=== PATIENT | male | born 1955 | race African-American/Black ===

== ENCOUNTER 2021-10-02 16:10 | Inpatient (IN) | payer MEDICARE, MEDICAID ==
[~2021-10-02] VITALS: Ht 180.3 cm; Wt 98.9 kg
[2021-10-02] MEDS ORDERED: SODIUM CHLORIDE 0.9% 250 ML IV ONE (16:45)
[2021-10-02 17:12] LABS: BASOPHILS % 0.3 % (0.0-2.0); EOSINOPHILS % 1.2 % (0.0-5.0); HEMOGLOBIN. 12.3 g/dL (14.0-18.0); LYMPHOCYTES % 14.3 % (20.0-50.0); MEAN CORPUSCULAR HEMOGLOBIN 27.9 pg (28.0-32.0); MEAN CORPUSCULAR VOLUME 88.5 fL (80.0-94.0); MEAN PLATELET VOLUME 8.2 fl (7.4-10.4); MONOCYTES % 8.6 % (2.0-8.0); NEUTROPHILS % 75.6 % (40.0-76.0); PLATELET 210 x1000/uL (130-400); RED CELL DISTRIBUTION WIDTH 14.9 % (11.6-14.6)
[2021-10-02 17:18] LABS: CHLORIDE 110 mEq/L (98-107)
[2021-10-02] MEDS ORDERED: POTASSIUM CHLORIDE 20MEQ TABLET SR PO ONE (17:30)
[2021-10-02] MEDS ORDERED: CLONIDINE 0.1MG TABLET PO PRN (21:30)
[2021-10-02] MEDS ORDERED: ONDANSETRON HCL 4MG/2ML INJ IV PRN (21:30)
[2021-10-02] MEDS ORDERED: MAGNESIUM/ALUMINUM HYDROXIDE/SIMETHICONE 30ML UDC PO PRN (21:30)
[2021-10-02] MEDS ORDERED: IPRATROPIUM/ALBUTEROL 0.5-3(2.5)MG/3ML NEB NEB PRN (21:30)
[2021-10-02] MEDS ORDERED: DOCUSATE SODIUM 100MG CAPSULE PO PRN (21:30)
[2021-10-02] MEDS ORDERED: ENOXAPARIN 40MG/0.4ML SYR SUBCUT SCH (21:30)
[2021-10-02] MEDS ORDERED: GUAIFENESIN 200MG/10ML SUGAR FREE UDC PO PRN (21:30)
[2021-10-02 23:47] LABS: CREATINE KINASE 186 IU/L (39-308)
[2021-10-02 23:48] LABS: CREATINE KINASE MB FRACTION 1.3 ng/mL (0.5-3.6)
[2021-10-03] MEDS: SODIUM CHLORIDE 0.9% 1,000 ML IV SCH ×3 (00:46→21:17)
[2021-10-03] MEDS: ENOXAPARIN 40MG/0.4ML SYR SUBCUT SCH ×2 (00:46→13:39)
[2021-10-03] MEDS ORDERED: POTASSIUM CHLORIDE 20MEQ TABLET SR PO NR (01:00)
[2021-10-03 03:02] LABS: CLARITY URINE CLEAR (CLEAR); COLOR URINE YELLOW (YELLOW); KETONES URINE TRACE (NEGATIVE); LEUKOCYTE ESTERASE URINE NEGATIVE (NEGATIVE); NITRITE URINE NEGATIVE (NEGATIVE); OCCULT BLOOD URINE NEGATIVE (NEGATIVE); PROTEIN URINE TRACE (NEGATIVE); SPECIFIC GRAVITY URINE 1.024 (1.005-1.030); UROBILINOGEN URINE 0.2 E.U./dL (0.2-1.0)
[2021-10-03 03:30] LABS: *AMPHETAMINES SCREEN URINE NEGATIVE (NEGATIVE); *BARBITURATES SCREEN URINE NEGATIVE (NEGATIVE)
[2021-10-03 03:31] LABS: *BENZODIAZEPINES SCREEN URINE NEGATIVE (NEGATIVE); *COCAINE SCREEN URINE NEGATIVE (NEGATIVE); CANNABINOID URINE SCREEN NEGATIVE (NEGATIVE); METHADONE URINE SCREEN NEGATIVE (NEGATIVE); OPIATES URINE SCREEN NEGATIVE (NEGATIVE); PHENCYCLIDINE URINE SCREEN NEGATIVE (NEGATIVE)
[2021-10-03 06:04] LABS: BASOPHILS % 0.2 % (0.0-2.0); EOSINOPHILS % 0.7 % (0.0-5.0); HEMATOCRIT. 35.6 % (42.0-52.0); HEMOGLOBIN. 11.5 g/dL (14.0-18.0); LYMPHOCYTES % 21.5 % (20.0-50.0); MEAN CORPUSCULAR HEMOGLOBIN 28.4 pg (28.0-32.0); MEAN CORPUSCULAR VOLUME 87.8 fL (80.0-94.0); MONOCYTES % 9.1 % (2.0-8.0); NEUTROPHILS % 68.5 % (40.0-76.0); PLATELET 186 x1000/uL (130-400); RED BLOOD CELL COUNT 4.06 mill/uL (4.7-6.1); RED CELL DISTRIBUTION WIDTH 14.5 % (11.6-14.6)
[2021-10-03 06:13] LABS: CHLORIDE 113 mEq/L (98-107)
[2021-10-03 06:21] LABS: CREATINE KINASE MB FRACTION 2.3 ng/mL (0.5-3.6)
[2021-10-03 06:24] LABS: HDL CHOLESTEROL 54 mg/dL (40-59); LDL CHOLESTEROL 38 mg/dL (5-100)
[2021-10-03 09:27] VITALS: BP 139/79
[2021-10-03 13:15] VITALS: BP 140/83
[2021-10-03] MEDS: ACETAMINOPHEN 325MG TABLET PO PRN (13:38)
[2021-10-03 16:04] VITALS: BP 143/80
[2021-10-03 20:00] VITALS: BP 128/80
[2021-10-04] VITALS (74 sets, daily range): BP systolic 91–152; BP diastolic 49–95
[2021-10-04] MEDS: ACETAMINOPHEN 325MG TABLET PO PRN ×2 (01:33→22:10)
[2021-10-04] MEDS ORDERED: IOHEXOL-350 100 ML BOTTLE ONE (01:57)
[2021-10-04] MEDS ORDERED: ESMOLOL 2500MG PREMIX 250 ML IV PRN (03:30)
[2021-10-04 05:59] LABS: CHLORIDE 111 mEq/L (98-107)
[2021-10-04 06:04] LABS: BASOPHILS % 0.5 % (0.0-2.0); EOSINOPHILS % 1.1 % (0.0-5.0); HEMATOCRIT. 37.6 % (42.0-52.0); HEMOGLOBIN. 12.1 g/dL (14.0-18.0); LYMPHOCYTES % 25.5 % (20.0-50.0); MEAN CORPUSCULAR VOLUME 86.9 fL (80.0-94.0); MEAN PLATELET VOLUME 8.8 fl (7.4-10.4); MONOCYTES % 10.5 % (2.0-8.0); NEUTROPHILS % 62.4 % (40.0-76.0); PLATELET 198 x1000/uL (130-400); RED BLOOD CELL COUNT 4.33 mill/uL (4.7-6.1); RED CELL DISTRIBUTION WIDTH 14.7 % (11.6-14.6)
[2021-10-04 06:08] LABS: INR 1.1; PROTHROMBIN TIME 11.5 sec (9.6-11.0)
[2021-10-04 06:09] LABS: CREATINE KINASE 863 IU/L (39-308); T4 FREE 0.88 ng/dL (0.76-1.46)
[2021-10-04] MEDS: ESMOLOL 2500MG PREMIX 250 ML IV PRN ×4 (06:14→21:55)
[2021-10-04 06:15] LABS: CHLORIDE 110 mEq/L (98-107)
[2021-10-04] MEDS: SODIUM CHLORIDE 0.9% 1,000 ML IV SCH (06:15)
[2021-10-04 06:55] LABS: BASOPHILS % 0.4 % (0.0-2.0); EOSINOPHILS % 1.2 % (0.0-5.0); HEMATOCRIT. 35.8 % (42.0-52.0); HEMOGLOBIN. 11.5 g/dL (14.0-18.0); LYMPHOCYTES % 23.4 % (20.0-50.0); MEAN CORPUSCULAR HEMOGLOBIN 28.4 pg (28.0-32.0); MEAN CORPUSCULAR VOLUME 88.3 fL (80.0-94.0); MONOCYTES % 10.9 % (2.0-8.0); NEUTROPHILS % 64.1 % (40.0-76.0); PLATELET 182 x1000/uL (130-400); RED BLOOD CELL COUNT 4.05 mill/uL (4.7-6.1); RED CELL DISTRIBUTION WIDTH 14.6 % (11.6-14.6)
[2021-10-04] MEDS ORDERED: NITROPRUSSIDE 50 MG in DEXT 5% WATER 248 ML IV PRN (08:30)
[2021-10-04] MEDS ORDERED: LIDOCAINE HCL 1% 20ML VIAL (Pyxis) INJ ONE (09:28)
[2021-10-04] MEDS: NICARDIPINE 50 MG in SODIUM CHLORIDE 0.9% 230 ML IV PRN ×2 (10:06→23:13)
[2021-10-04] MEDS ORDERED: ATOR-2 PO (17:35)
[2021-10-04] MEDS ORDERED: ASPI-986 PO (17:35)
[2021-10-04] MEDS ORDERED: CARV25TA47 PO (17:35)
[2021-10-05] VITALS (97 sets, daily range): BP systolic 89–141; BP diastolic 46–91
[2021-10-05] MEDS: ESMOLOL 2500MG PREMIX 250 ML IV PRN ×4 (02:05→21:45)
[2021-10-05 05:48] LABS: BASOPHILS % 0.3 % (0.0-2.0); EOSINOPHILS % 2.3 % (0.0-5.0); HEMATOCRIT. 34.3 % (42.0-52.0); HEMOGLOBIN. 11.4 g/dL (14.0-18.0); LYMPHOCYTES % 22.9 % (20.0-50.0); MEAN CORPUSCULAR HEMOGLOBIN 28.4 pg (28.0-32.0); MEAN CORPUSCULAR VOLUME 85.5 fL (80.0-94.0); MEAN PLATELET VOLUME 8.4 fl (7.4-10.4); MONOCYTES % 11.2 % (2.0-8.0); NEUTROPHILS % 63.3 % (40.0-76.0); PLATELET 181 x1000/uL (130-400); RED BLOOD CELL COUNT 4.01 mill/uL (4.7-6.1); RED CELL DISTRIBUTION WIDTH 14.1 % (11.6-14.6)
[2021-10-05 05:52] LABS: CHLORIDE 108 mEq/L (98-107)
[2021-10-05] MEDS ORDERED: POTASSIUM CHLORIDE 20MEQ TABLET SR PO NR (08:45)
[2021-10-06] VITALS (96 sets, daily range): BP systolic 91–144; BP diastolic 16–84
[2021-10-06] MEDS: ESMOLOL 2500MG PREMIX 250 ML IV PRN ×6 (01:46→21:18)
[2021-10-06 06:10] LABS: BASOPHILS % 0.2 % (0.0-2.0); EOSINOPHILS % 2.4 % (0.0-5.0); HEMATOCRIT. 33.5 % (42.0-52.0); HEMOGLOBIN. 11.2 g/dL (14.0-18.0); LYMPHOCYTES % 19.3 % (20.0-50.0); MEAN CORPUSCULAR HEMOGLOBIN 28.7 pg (28.0-32.0); MEAN CORPUSCULAR VOLUME 86.1 fL (80.0-94.0); MEAN PLATELET VOLUME 8.7 fl (7.4-10.4); MONOCYTES % 12.5 % (2.0-8.0); NEUTROPHILS % 65.6 % (40.0-76.0); PLATELET 181 x1000/uL (130-400); RED BLOOD CELL COUNT 3.89 mill/uL (4.7-6.1); RED CELL DISTRIBUTION WIDTH 14.1 % (11.6-14.6)
[2021-10-06 06:53] LABS: CHLORIDE 109 mEq/L (98-107)
[2021-10-06 07:03] LABS: CREATINE KINASE 772 IU/L (39-308)
[2021-10-06] MEDS: ACETAMINOPHEN 325MG TABLET PO PRN (08:45)
[2021-10-06] MEDS: NICARDIPINE 50 MG in SODIUM CHLORIDE 0.9% 230 ML IV PRN (09:14)
[2021-10-06] MEDS: AMLODIPINE 10MG TABLET PO SCH (10:38)
[2021-10-07] VITALS (98 sets, daily range): BP systolic 84–151; BP diastolic 45–92
[2021-10-07] MEDS: ESMOLOL 2500MG PREMIX 250 ML IV PRN ×6 (02:41→21:44)
[2021-10-07 06:03] LABS: CHLORIDE 109 mEq/L (98-107)
[2021-10-07 06:21] LABS: BASOPHILS % 0.3 % (0.0-2.0); EOSINOPHILS % 2.5 % (0.0-5.0); HEMATOCRIT. 34.8 % (42.0-52.0); HEMOGLOBIN. 11.8 g/dL (14.0-18.0); LYMPHOCYTES % 17.7 % (20.0-50.0); MEAN CORPUSCULAR HEMOGLOBIN 29.4 pg (28.0-32.0); MEAN CORPUSCULAR VOLUME 86.6 fL (80.0-94.0); MEAN PLATELET VOLUME 8.8 fl (7.4-10.4); MONOCYTES % 13.1 % (2.0-8.0); NEUTROPHILS % 66.4 % (40.0-76.0); PLATELET 179 x1000/uL (130-400); RED BLOOD CELL COUNT 4.02 mill/uL (4.7-6.1); RED CELL DISTRIBUTION WIDTH 13.9 % (11.6-14.6)
[2021-10-07] MEDS: AMLODIPINE 10MG TABLET PO SCH (08:34)
[2021-10-07] MEDS ORDERED: POTASSIUM CHLORIDE 10MEQ TABLET SR PO SCH (09:45)
[2021-10-07] MEDS ORDERED: LABETALOL HCL 100MG TABLET PO SCH (10:00)
[2021-10-07] MEDS ORDERED: POTASSIUM CHLORIDE 10MEQ TABLET SR PO NR (10:15)
[2021-10-07] MEDS: ACETAMINOPHEN 325MG TABLET PO PRN ×2 (11:28→21:01)
[2021-10-07] MEDS: LABETALOL HCL 100MG TABLET PO SCH (20:03)
[2021-10-08] VITALS (82 sets, daily range): BP systolic 84–146; BP diastolic 30–83
[2021-10-08] MEDS: ESMOLOL 2500MG PREMIX 250 ML IV PRN (04:27)
[2021-10-08 06:32] LABS: CHLORIDE 109 mEq/L (98-107)
[2021-10-08 06:47] LABS: BASOPHILS % 0.3 % (0.0-2.0); EOSINOPHILS % 2.6 % (0.0-5.0); HEMATOCRIT. 33.3 % (42.0-52.0); HEMOGLOBIN. 11.3 g/dL (14.0-18.0); LYMPHOCYTES % 21.3 % (20.0-50.0); MEAN CORPUSCULAR HEMOGLOBIN 29.3 pg (28.0-32.0); MEAN CORPUSCULAR VOLUME 86.7 fL (80.0-94.0); MEAN PLATELET VOLUME 8.6 fl (7.4-10.4); MONOCYTES % 12.1 % (2.0-8.0); NEUTROPHILS % 63.7 % (40.0-76.0); PLATELET 185 x1000/uL (130-400); RED BLOOD CELL COUNT 3.85 mill/uL (4.7-6.1); RED CELL DISTRIBUTION WIDTH 14.4 % (11.6-14.6)
[2021-10-08] MEDS: AMLODIPINE 10MG TABLET PO SCH (08:53)
[2021-10-08] MEDS: LABETALOL HCL 100MG TABLET PO SCH ×2 (08:54→20:30)
[2021-10-08] MEDS: HYDRALAZINE HCL 25MG TABLET PO SCH ×3 (09:47→22:16)
[2021-10-09] VITALS (13 sets, daily range): BP systolic 102–127; BP diastolic 59–78
[2021-10-09] MEDS: HYDRALAZINE HCL 25MG TABLET PO SCH ×2 (06:11→13:14)
[2021-10-09 07:25] LABS: BASOPHILS % 0.4 % (0.0-2.0); EOSINOPHILS % 2.5 % (0.0-5.0); HEMATOCRIT. 33.9 % (42.0-52.0); HEMOGLOBIN. 11.4 g/dL (14.0-18.0); LYMPHOCYTES % 21.8 % (20.0-50.0); MEAN CORPUSCULAR HEMOGLOBIN 28.8 pg (28.0-32.0); MEAN PLATELET VOLUME 8.3 fl (7.4-10.4); MONOCYTES % 12.5 % (2.0-8.0); NEUTROPHILS % 62.8 % (40.0-76.0); PLATELET 220 x1000/uL (130-400); RED BLOOD CELL COUNT 3.94 mill/uL (4.7-6.1); RED CELL DISTRIBUTION WIDTH 14.6 % (11.6-14.6)
[2021-10-09 07:40] LABS: CHLORIDE 109 mEq/L (98-107)
[2021-10-09] MEDS: AMLODIPINE 10MG TABLET PO SCH (08:59)
[2021-10-09] MEDS: LABETALOL HCL 100MG TABLET PO SCH (08:59)
[2021-10-09] MEDS ORDERED: HYDR-4134 PO (11:00)
[2021-10-09] MEDS ORDERED: AMLO10TA80 PO (11:00)
[2021-10-09] MEDS ORDERED: LABE100T5 PO (11:00)
== END 2021-10-09 14:48 | disposition home health service (06) | DRG 197 ==
LOC: ER 16:10 → 6WST 20:38 → ENRESERV 10-03 07:04 → CVICU 10-04 04:15 → 3WST 10-08 17:36
PROVIDERS: ADMIT Internal Medicine; ATTEND Internal Medicine
PROC: 02HV33Z Insertion of Infusion Device into Superior Vena Cava, Percutaneous Approach (ICD-10-PCS; principal; 2021-10-04)
PROC: B548ZZA Ultrasonography of Superior Vena Cava, Guidance (ICD-10-PCS; 2021-10-04)
DX: I71.00 Dissection of unspecified site of aorta (principal); G90.9 Disorder of the autonomic nervous system, unspecified; I95.9 Hypotension, unspecified; D64.9 Anemia, unspecified; E03.9 Hypothyroidism, unspecified; E78.5 Hyperlipidemia, unspecified; E87.6 Hypokalemia; I25.10 Atherosclerotic heart disease of native coronary artery without angina pectoris; I10 Essential (primary) hypertension; Z20.822 Contact with and (suspected) exposure to COVID-19; F41.9 Anxiety disorder, unspecified; R74.8 Abnormal levels of other serum enzymes; Z95.1 Presence of aortocoronary bypass graft; Z87.891 Personal history of nicotine dependence
CPT/HCPCS: 36415; 70551; 71045; 71275; 76937; 80048; 80053; 80061; 80305; 81003; 82533; 82550; 82553; 83735; 83880; 84439; 84443; 84481; 84484; 85025; 85379; 87426; 93005; 93306; 93880; 93970; 97161; 99285; A6261; C1725; J1650; J3490; J7050; J7060; Q9967

== ENCOUNTER 2024-09-08 16:40 | Emergency (ER) | payer MEDICARE, MEDICAID ==
[~2024-09-08] VITALS: Ht 182.9 cm; Wt 90.0 kg
[~2024-09-08 16:40] MED LIST: AMLO10TA80 PO; ASPI-986 PO; ATOR-2 PO; HYDR25TA78 PO; LABE100T9 PO
[2024-09-08 16:41] VITALS: O2SAT 98
[2024-09-08 19:36] LABS: BASOPHILS % 0.3 % (0.0-2.0); EOSINOPHILS % 0.5 % (0.0-5.0); HEMATOCRIT. 37.9 % (42.0-52.0); HEMOGLOBIN. 12.5 g/dL (14.0-18.0); LYMPHOCYTES % 13.3 % (20.0-50.0); MEAN CORPUSCULAR HEMOGLOBIN 28.7 pg (28.0-32.0); MEAN CORPUSCULAR HGB CONC 33.1 g/dL (31.0-37.0); MEAN CORPUSCULAR VOLUME 86.9 fL (80.0-94.0); MEAN PLATELET VOLUME 7.9 fl (7.4-10.4); MONOCYTES % 7.8 % (2.0-8.0); NEUTROPHILS % 78.1 % (40.0-76.0); PLATELET 211 x1000/uL (130-400); RED BLOOD CELL COUNT 4.36 mill/uL (4.7-6.1); RED CELL DISTRIBUTION WIDTH 15.9 % (11.6-14.6); WHITE BLOOD COUNT 8.2 x1000/uL (4.5-11.0)
[2024-09-08 19:44] LABS: CARBON DIOXIDE 26 mEq/L (21-32); CHLORIDE 105 mEq/L (98-107); POTASSIUM 4.1 mEq/L (3.5-5.1); SODIUM 141 mEq/L (136-145)
[2024-09-08 19:45] LABS: CALCIUM 10.2 mg/dL (8.7-10.4)
[2024-09-08 19:50] LABS: CREATININE 1.2 mg/dL (0.6-1.3); GLUCOSE 121 mg/dL (70-105); UREA NITROGEN BLOOD 12 mg/dL (9-23)
[2024-09-08 19:52] LABS: PHOSPHORUS 4.5 mg/dL (2.5-4.9)
[2024-09-08] MEDS ORDERED: METH-653 MT (20:24)
[2024-09-08] MEDS ORDERED: IBUP-2028 MT (20:24)
[2024-09-08] MEDS: IBUPROFEN 600MG TABLET PO ONE (21:24)
[2024-09-08] MEDS: METHOCARBAMOL 750MG TABLET PO SCH (21:24)
[2024-09-08 21:28] VITALS: BP 148/83; PULSE 72; RESP 20; TEMP 36.83628; O2SAT 99
== END 2024-09-08 21:59 | disposition home or self-care (01) ==
LOC: ER 16:40
DX: M25.562 Pain in left knee (principal); M62.838 Other muscle spasm; I10 Essential (primary) hypertension; Z79.899 Other long term (current) drug therapy; Z79.82 Long term (current) use of aspirin
CPT/HCPCS: 36415; 73552; 73562; 80048; 83735; 84100; 85025; 93970; 99285

== ENCOUNTER 2024-09-09 10:45 | Emergency (ER) | payer MEDICARE, OTHER ==
[~2024-09-09] VITALS: Ht 177.8 cm; Wt 90.0 kg
[~2024-09-09 10:45] MED LIST changes: +IBUP-2028 MT; +METH-653 MT
[2024-09-09 10:49] VITALS: TEMP 98.5; O2SAT 99
[2024-09-09] MEDS: MORPHINE SULFATE 4 MG/ML INJ (FOR IV/IM USE) IV ONE (11:52)
[2024-09-09] MEDS: LABETALOL 5MG/ML 4ML INJ IV ONE (12:00)
[2024-09-09 12:06] LABS: BASOPHILS % 0.1 % (0.0-2.0); EOSINOPHILS % 0.3 % (0.0-5.0); HEMOGLOBIN. 10.1 g/dL (14.0-18.0); LYMPHOCYTES % 15.6 % (20.0-50.0); MEAN CORPUSCULAR HEMOGLOBIN 28.2 pg (28.0-32.0); MEAN CORPUSCULAR HGB CONC 31.6 g/dL (31.0-37.0); MEAN CORPUSCULAR VOLUME 89.3 fL (80.0-94.0); MEAN PLATELET VOLUME 7.9 fl (7.4-10.4); MONOCYTES % 7.1 % (2.0-8.0); NEUTROPHILS % 76.9 % (40.0-76.0); PLATELET 153 x1000/uL (130-400); RED BLOOD CELL COUNT 3.58 mill/uL (4.7-6.1); RED CELL DISTRIBUTION WIDTH 16.3 % (11.6-14.6); WHITE BLOOD COUNT 14.6 x1000/uL (4.5-11.0)
[2024-09-09 12:13] LABS: CHLORIDE 104 mEq/L (98-107); POTASSIUM 3.7 mEq/L (3.5-5.1); SODIUM 141 mEq/L (136-145)
[2024-09-09 12:14] LABS: CALCIUM 9.7 mg/dL (8.7-10.4); CARBON DIOXIDE 18 mEq/L (21-32)
[2024-09-09 12:19] LABS: GLUCOSE 238 mg/dL (70-105); UREA NITROGEN BLOOD 18 mg/dL (9-23)
[2024-09-09 12:21] LABS: ALANINE AMINOTRANSFERASE 8 IU/L (10-49); ALBUMIN 3.9 g/dL (3.2-4.8); ASPARTATE AMINOTRANSFERASE 14 IU/L (<34); BILIRUBIN TOTAL 0.9 mg/dL (0.1-1.0); PROTEIN TOTAL 6.7 g/dL (6.0-8.3)
[2024-09-09 12:22] LABS: CREATININE 1.9 mg/dL (0.6-1.3)
[2024-09-09] MEDS: SODIUM CHLORIDE 0.9% 1,000 ML IV ONE (13:06)
[2024-09-09] MEDS: NOREPINEPHRINE 8MG/250ML PMX 250 ML IV ONE (13:18)
[2024-09-09 13:25] VITALS: BP 84/57; PULSE 90; RESP 22; O2SAT 98
[2024-09-09] MEDS ORDERED: PIPERACILLIN/TAZO 3.375G/50ML 50 ML IV SCH ×2 (14:00)
[2024-09-09] MEDS ORDERED: VASOPRESSIN 20 UNIT in SODIUM CHLORIDE 0.9% 99 ML IV PRN (14:30)
[2024-09-09] MEDS ORDERED: ESMOLOL 2500MG PREMIX 250 ML IV PRN (14:30)
[2024-09-09] MEDS ORDERED: ESMOLOL 2500MG PREMIX 250 ML IV ONE (14:30)
[2024-09-09] MEDS ORDERED: VASOPRESSIN 20 UNIT in SODIUM CHLORIDE 0.9% 99 ML IV ONE (14:30)
[2024-09-09] MEDS ORDERED: IOHEXOL-350 100 ML BOTTLE ONE (15:13)
[2024-09-09 15:15] LABS: TROPONIN I HIGH SENSITIVITY 269 ng/L (3.0-53)
[2024-09-09] MEDS ORDERED: ONDANSETRON HCL 4MG/2ML INJ IV ONE (16:00)
== END 2024-09-09 16:06 ==
LOC: ER 10:45
DX: M25.562 Pain in left knee (principal); N17.9 Acute kidney failure, unspecified; I95.9 Hypotension, unspecified; I10 Essential (primary) hypertension; Z79.899 Other long term (current) drug therapy; Z86.79 Personal history of other diseases of the circulatory system
CPT/HCPCS: 93005; 96374; 80053; 85025; 86850; 86900; 86901; 87040; 84484; 36415; 71275; 75635; 92950; 31500; 94070; 99291; Q9967; J3490 ×2; J2405; J2270; J7030; J7050